=== PATIENT | female | born 1950 | race Caucasian/White ===

== ENCOUNTER 2018-08-02 16:15 | Observation (INO) | payer SELFPAY ==
[2018-07-17 10:58] VITALS: BMI 26.9
[2018-08-01] VITALS (15 sets, daily range): BP systolic 118–153; BP diastolic 67–91; PULSE 48–94; RESP 10–20; TEMP 35.6–37.1; O2SAT 94–100; BMI 25.9
--- NOTE | 2018-08-01 06:30 | DI.RAD.S_ITS ---
PROCEDURE: XR KNEE LT 1TO2V INDICATIONS: POST OPERATIVE TOTAL LEFT KNEE TECHNIQUE: 2 view(s) of the knee acquired. COMPARISON: None. FINDINGS: Bones: Patient is status post knee joint arthroplasty. Hardware components are in expected positions. Visualized bony structures are intact. Soft tissues: Overlying postoperative changes are noted. IMPRESSION: Normal postoperative examination. Dictated by: Dillon Hyatt M.D. on 08/01/2018 at 12:07 Approved by: Dillon Hyatt M.D. on 08/01/2018 at 12:07
[2018-08-01] MEDS: CELECOXIB 200 MG CAPSULE PO (08:46)
[2018-08-01] MEDS: PREGABALIN 75 MG CAPSULE PO (08:46)
[2018-08-01] MEDS: ACETAMINOPHEN 325 MG TABLET 975 MG PO (08:46)
[2018-08-01] MEDS: LACTATED RINGERS 1,000 ML 42 ML IV (09:02)
--- NOTE | 2018-08-01 09:55 | SUR.PREOP ---
SPOKE WITH MD OATS REGARDING PT ALLERGY TO PCN IN RELATION TO CURRENT ORDER FOR ANCEF. PER MD OATS OK TO CONTINUE WITH CURRENT ORDER FOR ANCEF. COMMUNICATED THIS WITH LICENSED INVESTMENT SALES ASSISTANT.
--- NOTE | 2018-08-01 09:58 | PM.PREOP ---
Pre-operative Note Interval Note Pre-op Check: Yes History & Physical Reviewed by Physician and Yes Exam Performed Changes: No
[2018-08-01] MEDS: CEFAZOLIN 2 GM/100 ML FROZ.PIGGY IV ×2 (10:40→19:06)
--- NOTE | 2018-08-01 11:13 | SUR.OPER ---
Supine on padded OR bed. Pillow under head, arms secured on padded armboards <90 degree abduction. Safety belt across torso. Non-operative leg secured with tape over blanket over lower leg. Operative leg secured in DeMayo/Gumaro positioner. Foam padded brace at thigh of operative leg.
[2018-08-01] MEDS: BUPIVACAINE 0.25% W/ EPI VIAL 50 ML INJ (11:21)
[2018-08-01] MEDS: BUPIVACAINE LIPOSOME 266 MG/20 ML VIAL INJ (11:21)
[2018-08-01] MEDS: MORPHINE 4 MG/ML INJ IM (11:22)
[2018-08-01] MEDS: TRANEXAMIC ACID 1,000 MG VIAL 1000 MG INJ ×2 (11:23→11:48)
--- NOTE | 2018-08-01 12:32 | P.OP_ITS ---
Operative Date/Time/Diagnoses Date of procedure: 08/01/18 Time of procedure: 12:15 Pre-op diagnosis: Left knee osteoarthritis Post-op diagnosis: same Procedure & Clinicians Procedure: Left total knee replacement Same procedure as scheduled: Yes Indications: The patient has had progressively worsening left knee pain with radiographic changes consistent with arthritis. Non-operative management has failed and the patient has requested total knee replacement. The risks, benefits and alternatives to surgery were discussed with the patient prior to proceeding. Risks discussed included, but were not limited to, failure to relieve pain, stiffness, infection, nerve damage, deep venous thrombosis, pulmonary embolism, stroke, coma, heart attack, permanent paralysis and , as well as the potential need for eventual revision of the prosthetic. Surgeon: Frandy Lemus Composition Weatherboard Applier: Paige Lindo Click Yes if Unassisted: No Anesthesia Type: General, Spinal and Local Operative Notes Findings: Severe medial osteoarthritis and moderately severe patellofemoral osteoarthritis with relative preservation of the lateral compartment. Closure Type: primary Specimen(s): none sent Implants & Drains: Implants used in this procedure were manufactured by the [employer] and included the BCS II Journey total knee replacement with a size 4 left Oxinium femoral component, size 3 left non porous tibial base plate, a 9 mm cross-linked polyethylene tibial insert and a 32 mm oval Julia II patellar component. Applied: implant(s) Estimated Blood Loss (mL): 50 Blood products transfused: none Tourniquet time (min): 52 Procedure in detail: The patient was seen in the pre-operative area, where the left knee was identified as the operative site and this was marked with my initials. The patient received pre-operative antibiotics with an appropriate first generation cephalosporin, and was taken to the operating room and placed on the operative table in the supine position. After satisfactory anesthesia, a multimedia instructional designer out was performed. The left leg was encircled with a tourniquet about the proximal thigh, and the leg was prepared from the toes to the tourniquet with ChloroPrep in the usual fashion and draped through sterile drapes. The leg was elevated and exsanguinated with Eschmark bandage and the tourniquet inflated to 250 mmHg pressure. The knee was approached through an approximately 18 cm incision centered over the patella and carried into the knee through a medial parapatellar arthrotomy. The anterior osteophytes and soft tissues were removed. The rotational landmarks of Isabela's line and the transepicondylar axis were marked on the femur with electrocautery, and intramedullary guide holes for the femur and tibia were created. The distal femoral cut was made in 6 degrees of valgus using the intramedullary guide at the +2 cut setting due to a preoperative flexion contracture. The proximal tibial cut was then made using the intramedullary guide, taking 9 mm of bone off the less involved side. The extension gap was checked and the rotation of the femoral component confirmed with the gap balancing blocks. The anterior, posterior and chamfer cuts were then made. The posterior osteophytes and soft tissues were then removed. The posterior capsule was injected with part of a mixture of 50 ml 0.25% Marcaine mixed with 20 ml Exparel and 4 mg of morphine for post-operative pain control. The remainder of this mixture was injected into the capsule and subcutaneous tissues during cement curing. The tibia was prepared with the rotation set by an extra medullary guide. Trial tibial and femoral components were then placed and the intercondylar notch cut through the femoral trial. Range of motion was 0-135 degrees, with good stability throughout the range. The patella was then cut to accommodate the patellar prosthetic. There was no need for a lateral release. The trials were then removed, and the femoral hole plugged with a bone plug. The bone was prepared with pulsatile lavage, and dried with a sponge. Cement was applied and the final prosthetics placed. Excess cement was removed during and after cement curing. After confirming there was no extruded cement posteriorly, the final tibial insert was placed. The knee was copiously irrigated and the tourniquet deflated. Hemostasis was obtained. The capsule was closed with interrupted # 2 polyester sutures. The subcutaneous layer was closed with 3-0 Vicryl, and the skin with a running 3-0 V-Lock suture and SteriStrips. An Aquacel Ag dressing was applied and the patient was taken to recovery having tolerated the procedure well. Complications: none Condition: stable Disposition: PACU Plan for aftercare: The patient will be maintained on a standard total knee replacement protocol with weight bearing as tolerated. The patient will receive aspirin and sequential compression devices for DVT prophylaxis. The patient will be discharged home when safe for the home environment.
[2018-08-01] MEDS: LACTATED RINGERS 1,000 ML 125 ML IV ×2 (14:00→21:39)
--- NOTE | 2018-08-01 14:49 | PC.NURSE ---
Postop Note Patient arrived to room 102 from PACU via bed at `1325. Alert and oriented x3. Oxygen sats 97% RA, encouraged to cough and deep breathe, instructed on IS use. Denies pain, received duramorph spinal. Numbness to BLEs but able to move toes/feet, strong palpable pulses present. ALIDA wrap dressing to left knee C/D/I. Oriented to room and to bed/tv/call light controls. Pt's own cold therapy device in place to left knee. Call light within reach.
--- NOTE | 2018-08-01 15:35 | PT.IIE ---
Current Diagnoses Bilateral primary osteoarthritis of knee (08/01/18) Surgery Performed Operation Date: 08/01/18 10:15 Actual Procedures p Total Knee Arthroplasty(Left) - Frandy Lemus MD Surgical History (Last Updated 07/17/18 @ 11:19 by Moira Champion RN) Hx of arthroscopy of left knee (Acute ~10/2009) Hx of colonoscopy (Acute) Hx of dilation and curettage (Acute) Medical History (Last Updated 07/17/18 @ 11:19 by Moira Champion RN) Eczema (Acute) GERD (gastroesophageal reflux disease) (Acute) HTN (hypertension) (Acute) Hyperlipidemia (Acute) Hypothyroidism (Acute) Low back pain (Acute) Osteoarthritis (Acute) Physical Therapy Inpatient Evaluation/Re-Eval M1 PT/OT-IP Prior Functional Status Start: 08/01/18 16:54 Freq: NEEDED Status: Active Protocol: Document 08/01/18 15:35 AB (Rec: 08/01/18 17:08 AB [id number]) Medical Review Prior Functional Status Medical History Reviewed Yes Communication able to make needs known Mobility and Gait stated that she is indpeendent with all mobilities and ambulation without AD but occasionally uses a SPC for long distance ambulation Social History Household Members spouse Living Arrangements House Number of Floors (Floors) Two Floors Number of Stairs To Enter/Railing? pt lives in [facility]. stated that she will stay at the [facility] until tuesday and will fly back to [place]. Has 2 steps without rails to enter; 12 steps with R rail ascending to get to 2nd floor Home Environment High Toilet Walk in Shower Home Equipment Front Wheel Walker Straight Cane Crutches Raised Toilet Seat w/Armrests Shower Seat without Backrest Hand Held Shower Additional Social History Comment stated that she will have a visiting nurse to assist her for ~ 4 hours everyday for 2 weeks M2 PT-IP Current Condition Start: 08/01/18 16:54 Freq: NEEDED Status: Active Protocol: Document 08/01/18 15:35 AB (Rec: 08/01/18 17:08 AB [id number]) Physical Therapy Current Condition Current Condition Evaluation Date 08/01/18 Treatment Diagnosis s/p L TKA; difficulty in walking Onset Date 08/01/18 Weight Bearing Status Weight Bearing Status Weight Bear as Tolerated M3 PT-IP Subjective Start: 08/01/18 16:54 Freq: NEEDED Status: Active Protocol: Document 08/01/18 15:35 AB (Rec: 08/01/18 17:08 AB [id number]) Subjective Physical Therapy Visit Type Type Initial Evaluation Visit Start Time 15:35 Visit Stop Time 16:30 Total Visit Minutes 55 Number of HEALTH INFORMATION TECHNOLOGIST Visits 0 Physical Therapy Visit Comments Patient Comments pt agreeable to do PT; still c /o numbness on RLE and buttocks area Therapy Pain Assessment Pain When Pain Assessed During Mobility Pain Present Pain Present Pain Reported Location Left Knee Intensity 6 Scale Used Numeric (1 - 10) Pain Management Techniques Apply Cold Re-positioning Timing of Activity with Medications M4 PT-IP Mobility and Gait Start: 08/01/18 16:54 Freq: NEEDED Status: Active Protocol: Document 08/01/18 15:35 AB (Rec: 08/01/18 17:08 AB [id number]) PT-Bed Mobility Assessment Supine to Sit Supine to Sit Standby Assistance Sit to Supine Sit to Supine Standby Assistance Scooting Scooting to Edge of Bed Standby Assistance PT-Transfer Assessment Sit to and From Stand Sit to and from Stand Maximum Assistance 1 Person Assistance Use of Upper Extremities Equipment Transfer Assistive Device Gait Belt Front Wheeled Walker Orthotic/Prosthetic Devices or Brace: No Transfers Transfer Destination Bedside Commode Transfer Technique Stand Step Pivot Transfer Ability Level of Assist Maximum Assistance 1 Person Assistance Use of Upper Extremities Comments Mobility Comments pt required max A and max cues with sit to stand. presents with decrease standing balance requiring max A for steadiness and safety. pt sat back down. pt requested to use bedside commode. pt completed sit to stand again max A and max cues for quad activation on BLE. pt complete stand step pivot transfer to bedside commode max a and max cues with assist with maneuvering FWW. Nurse present. pt completed sit to stand from bedside comoode max A and cues and transferred to the bed using FWW. pt does not have full control of RLE affecting mobility and stability and reuqired max A and max cues during transfer. Pt. c/o nausea during mobility : BP in supine: 121/79 BP sitting on EOB: 141/69. Nurse aware and present during tx session. pt wiht (+) emesis. Gait Assessment Comments Gait Comments unable at this time; still c/o RLE numbness and unable to control LE and trunk during transfers requiring max A and max cues. PT-Balance Assessment Sitting Balance and Reactions Static Sitting Balance Ability Good Dynamic Sitting Balance Ability Fair Standing Balance and Reactions Static Standing Balance Ability Poor Dynamic Standing Balance Ability Poor Device Used FWW M5 PT-IP Objective Assessments Start: 08/01/18 16:54 Freq: NEEDED Status: Active Protocol: Document 08/01/18 15:35 AB (Rec: 08/01/18 17:08 AB [id number]) Orientation Orientation/Cognition Level of Alertness Alert Orientation Name Age Birthday Month Date Year Day of Week Place Situation Gross Range of Motion Lower Extremity ROM Assessment Left Impaired Impairments PROM LLE: ~ 80 deg Strength Lower Extremity Strength Assessment Left Impaired Knee 3+/5 Sensation Assessment Sensation Gross Sensation Right LE Impaired Light Touch Impaired Sensation Description Numbness M6 PT-IP Treatment Start: 08/01/18 16:54 Freq: NEEDED Status: Active Protocol: Document 08/01/18 15:35 AB (Rec: 08/01/18 17:08 AB [id number]) Physical Therapy Treatment Exercises Exercises Ankle Pumps Quad Sets Heel Slides Straight Leg Raises Education Education Provided Precautions Weight Bearing Status Post-Op Packet Safety M7 PT-IP Assessment and Plan Start: 08/01/18 16:54 Freq: NEEDED Status: Active Protocol: Document 08/01/18 15:35 AB (Rec: 08/01/18 17:08 AB [id number]) PT Summary Assessment and Plan Potential Rehabilitation Potential Fair Status of Condition at Evaluation Evolving Summary Impairments Pain ROM Strength Balance Coordination Sensation Tone Bed Mobility Transfers Gait Activity Tolerance Assessment Summary pt requiring max A with mobility at this time and still c/o RLE numbness affecting moblity. will continue to assess. pt plans to go home with spouse to assist her. Goals Bed Mobility Goal Standby Assistance Transfer Goal Standby Assistance Front Wheeled Walker Gait Goal Standby Assistance Front Wheel Walker Gait Distance 200 Other Goals up/down 2 steps without rails SBA; up/down 12 steps with R rail ascending SBA Days to Meet Goals 3 Frequency of Treatment Frequency Of Treatment Twice a Day Treatment Plan Physical Therapy Treatment Plan Bed Mobility Training Transfer Training Gait Training Therapeutic Exercise Balance Retraining Post Op Education Discharge Planning Hot or Cold Pack Neuromuscular Re-ed Coordination Retraining Manual Therapy Recommendations To Nursing Amount of Assist Needed 2 Person Assist Discharge Recommendations PT Discharge Recommendations Home with 04/04 Assist Home Health
--- NOTE | 2018-08-01 15:35 | PT.IIE ---
Current Diagnoses Bilateral primary osteoarthritis of knee (08/01/18) Surgery Performed Operation Date: 08/01/18 10:15 Actual Procedures p Total Knee Arthroplasty(Left) - Frandy Lemus MD Surgical History (Last Updated 07/17/18 @ 11:19 by Moira Champion RN) Hx of arthroscopy of left knee (Acute ~10/2009) Hx of colonoscopy (Acute) Hx of dilation and curettage (Acute) Medical History (Last Updated 07/17/18 @ 11:19 by Moira Champion RN) Eczema (Acute) GERD (gastroesophageal reflux disease) (Acute) HTN (hypertension) (Acute) Hyperlipidemia (Acute) Hypothyroidism (Acute) Low back pain (Acute) Osteoarthritis (Acute) Physical Therapy Inpatient Evaluation/Re-Eval M1 PT/OT-IP Prior Functional Status Start: 08/01/18 16:54 Freq: NEEDED Status: Active Protocol: Document 08/01/18 15:35 AB (Rec: 08/01/18 17:08 AB [id number]) Medical Review Prior Functional Status Medical History Reviewed Yes Communication able to make needs known Mobility and Gait stated that she is indpeendent with all mobilities and ambulation without AD but occasionally uses a SPC for long distance ambulation Social History Household Members spouse Living Arrangements House Number of Floors (Floors) Two Floors Number of Stairs To Enter/Railing? pt lives in [facility]. stated that she will stay at the [facility] until tuesday and will fly back to [place]. Has 2 steps without rails to enter; 12 steps with R rail ascending to get to 2nd floor Home Environment High Toilet Walk in Shower Home Equipment Front Wheel Walker Straight Cane Crutches Raised Toilet Seat w/Armrests Shower Seat without Backrest Hand Held Shower Additional Social History Comment stated that she will have a visiting nurse to assist her for ~ 4 hours everyday for 2 weeks M2 PT-IP Current Condition Start: 08/01/18 16:54 Freq: NEEDED Status: Active Protocol: Document 08/01/18 15:35 AB (Rec: 08/01/18 17:08 AB [id number]) Physical Therapy Current Condition Current Condition Evaluation Date 08/01/18 Treatment Diagnosis s/p L TKA; difficulty in walking Onset Date 08/01/18 Weight Bearing Status Weight Bearing Status Weight Bear as Tolerated M3 PT-IP Subjective Start: 08/01/18 16:54 Freq: NEEDED Status: Active Protocol: Document 08/01/18 15:35 AB (Rec: 08/01/18 17:08 AB [id number]) Subjective Physical Therapy Visit Type Type Initial Evaluation Visit Start Time 15:35 Visit Stop Time 16:30 Total Visit Minutes 55 Number of AIR CREW SUPERVISOR Visits 0 Physical Therapy Visit Comments Patient Comments pt agreeable to do PT; still c /o numbness on RLE and buttocks area Therapy Pain Assessment Pain When Pain Assessed During Mobility Pain Present Pain Present Pain Reported Location Left Knee Intensity 6 Scale Used Numeric (1 - 10) Pain Management Techniques Apply Cold Re-positioning Timing of Activity with Medications M4 PT-IP Mobility and Gait Start: 08/01/18 16:54 Freq: NEEDED Status: Active Protocol: Document 08/01/18 15:35 AB (Rec: 08/01/18 17:08 AB [id number]) PT-Bed Mobility Assessment Supine to Sit Supine to Sit Standby Assistance Sit to Supine Sit to Supine Standby Assistance Scooting Scooting to Edge of Bed Standby Assistance PT-Transfer Assessment Sit to and From Stand Sit to and from Stand Maximum Assistance 1 Person Assistance Use of Upper Extremities Equipment Transfer Assistive Device Gait Belt Front Wheeled Walker Orthotic/Prosthetic Devices or Brace: No Transfers Transfer Destination Bedside Commode Transfer Technique Stand Step Pivot Transfer Ability Level of Assist Maximum Assistance 1 Person Assistance Use of Upper Extremities Comments Mobility Comments pt required max A and max cues with sit to stand. presents with decrease standing balance requiring max A for steadiness and safety. pt sat back down. pt requested to use bedside commode. pt completed sit to stand again max A and max cues for quad activation on BLE. pt complete stand step pivot transfer to bedside commode max a and max cues with assist with maneuvering FWW. Nurse present. pt completed sit to stand from bedside comoode max A and cues and transferred to the bed using FWW. Gait Assessment Comments Gait Comments unable at this time; still c/o RLE numbness and unable to control LE and trunk during transfers requiring max A and max cues. PT-Balance Assessment Sitting Balance and Reactions Static Sitting Balance Ability Good Dynamic Sitting Balance Ability Fair Standing Balance and Reactions Static Standing Balance Ability Poor Dynamic Standing Balance Ability Poor Device Used FWW M5 PT-IP Objective Assessments Start: 08/01/18 16:54 Freq: NEEDED Status: Active Protocol: Document 08/01/18 15:35 AB (Rec: 08/01/18 17:08 AB [id number]) Orientation Orientation/Cognition Level of Alertness Alert Orientation Name Age Birthday Month Date Year Day of Week Place Situation Gross Range of Motion Lower Extremity ROM Assessment Left Impaired Impairments PROM LLE: ~ 80 deg Strength Lower Extremity Strength Assessment Left Impaired Knee 3+/5 Sensation Assessment Sensation Gross Sensation Right LE Impaired Light Touch Impaired Sensation Description Numbness M6 PT-IP Treatment Start: 08/01/18 16:54 Freq: NEEDED Status: Active Protocol: Document 08/01/18 15:35 AB (Rec: 08/01/18 17:08 AB [id number]) Physical Therapy Treatment Exercises Exercises Ankle Pumps Quad Sets Heel Slides Straight Leg Raises Education Education Provided Precautions Weight Bearing Status Post-Op Packet Safety M7 PT-IP Assessment and Plan Start: 08/01/18 16:54 Freq: NEEDED Status: Active Protocol: Document 08/01/18 15:35 AB (Rec: 08/01/18 17:08 AB [id number]) PT Summary Assessment and Plan Potential Rehabilitation Potential Fair Status of Condition at Evaluation Evolving Summary Impairments Pain ROM Strength Balance Coordination Sensation Tone Bed Mobility Transfers Gait Activity Tolerance Assessment Summary pt requiring max A with mobility at this time and still c/o RLE numbness affecting moblity. will continue to assess. pt plans to go home with spouse to assist her. Goals Bed Mobility Goal Standby Assistance Transfer Goal Standby Assistance Front Wheeled Walker Gait Goal Standby Assistance Front Wheel Walker Gait Distance 200 Other Goals up/down 2 steps without rails SBA; up/down 12 steps with R rail ascending SBA Days to Meet Goals 3 Frequency of Treatment Frequency Of Treatment Twice a Day Treatment Plan Physical Therapy Treatment Plan Bed Mobility Training Transfer Training Gait Training Therapeutic Exercise Balance Retraining Post Op Education Discharge Planning Hot or Cold Pack Neuromuscular Re-ed Coordination Retraining Manual Therapy Recommendations To Nursing Amount of Assist Needed 2 Person Assist Discharge Recommendations PT Discharge Recommendations Home with 04/04 Assist Home Health
[2018-08-01] MEDS: ONDANSETRON 4 MG/2 ML INJ IV ×2 (16:13→20:41)
[2018-08-01] MEDS: NALOXONE 0.4 MG/ML VIAL 0.2 MG IV ×5 (18:29→23:53)
--- NOTE | 2018-08-01 18:32 | PC.NURSE ---
Addendum entered by Xin Orlando R.N. 08/01/18 22:26: 2225 - Nausea persists. Zofran does not seem to be very effective. Narcan given as ordered. Pt states I would rather have pain than have my head feel like this. Ice replenished. Bradycardic in the 50's, 100% on 2L, drsg cdi. Original Note: Addendum entered by Xin Orlando R.N. 08/01/18 20:51: 2050 - Pt continues to report nausea. Zofran given. Home cooling device on LLE. Original Note: Addendum entered by Xin Orlando R.N. 08/01/18 18:39: 1840 - Pt reports nausea as improved however now reporting pain to left knee 3/10, throbbing. continue to monitor. Original Note: Dr. Montesinos notified that pt has persistent nausea and mild lightheadedness with 2 episodes of emesis, and that her HR is bradycardic, 40's while asleep and 50's while awake. BP 136/61, also notified placed on 2L NC r/t sats decreasing into the 70's while asleep. Review RX, scolopalimine patch, zorfran and duramorph. Recommends trial of a small amount narcan to assist with nausea. Monitor.
[2018-08-02] VITALS: BP 153/70; PULSE 47; RESP 16; TEMP 36.1; O2SAT 100
[2018-08-02] MEDS: CEFAZOLIN 2 GM/100 ML FROZ.PIGGY IV (03:55)
[2018-08-02 04:00] VITALS: BP 114/66; PULSE 57; RESP 18; TEMP 36.2; O2SAT 100
[2018-08-02 05:47] LABS: Hematocrit 34.4 % (36-46); Hemoglobin 11.4 g/dL (12.0-16.0)
[2018-08-02] MEDS: LEVOTHYROXINE 75 MCG TABLET PO (06:00)
[2018-08-02] MEDS: LACTATED RINGERS 1,000 ML 125 ML IV (06:00)
--- NOTE | 2018-08-02 06:54 | PC.NURSE ---
Pt voided at start of shift via bedpan 100 mL. Attempted bedpan two more times unsuccessful. Offered to get pt up to BSC, states I'm still feeling a little woozy and declines. Bladder scan for >700 mL. Pt declines straight cath at this time, attempting to use bedpan again before anything else discussed. Nausea has subsided after one dose of narcan this shift. Pain reported 3/10 at most and tolerable. No acute changes this shift.
[2018-08-02 07:00] VITALS: BP 133/71; PULSE 63; RESP 18; TEMP 36.6; O2SAT 100
--- NOTE | 2018-08-02 07:48 | PM.PNPO.1 ---
Subjective Date Patient Seen: 08/02/18 Time Patient Seen: 07:49 Interval history: The patient reports she has had some nausea and vomiting overnight. She has received antiemetics. She also reports that she has had some mild dizziness although she has been able to get up and walk to the bathroom without difficulty. Exam Vital Signs (past 8 hours): - 08/02/18 00:00 08/02/18 04:00 Temperature 97.0 F L 97.2 F L Pulse Rate 47 L 57 L Respiratory Rate 16 18 Blood Pressure 153/70 H 114/66 Pulse Oximetry 100 100 Oxygen Delivery Method Nasal Cannula Oxygen Flow Rate 2 Narrative Exam Narrative: Left knee wound is dressed with no drainage on the bandage. Calf is soft. Light touch and motion are intact in the left lower extremity. Objective Labs Result Diagrams: 08/02/18 05:16 Labs: Laboratory Results - last 24 hr 08/01/18 08/02/18 13:40 05:16 Hgb 11.4 L Hct 34.4 L Nasal Screen MRSA (PCR) Negative for mrsa Radiographs reveal a well-positioned total knee replacement in the left knee with no signs of any early complications. Assessment & Plan Post-op Postoperative Procedures Operation Date: 08/01/18 10:15 Actual Procedures Side Surgeon p Total Knee Arthroplasty Left Frandy Lemus MD Postoperative day: 1 Postoperative status: doing well, anemia and other (Postoperative nausea) Postoperative status narrative: The patient is stable postoperative day 1 but is having mild symptoms from her anesthesia including some mild lightheadedness and nausea. She has been able to walk to and from the bathroom. She has a mild post hemorrhagic anemia. This should not require additional labs. Postoperative plan: routine post-op care, ambulate and advance diet Postoperative plan narrative: She will have physical therapy today. We will continue to treat her nausea appropriately and advance her diet as tolerated. It is unlikely she will be ready for discharge today however she may make enough progress in PT to be discharged tomorrow if she stabilizes further. Time Spent With Patient less than 15 minutes
[2018-08-02] MEDS: ACETAMINOPHEN 325 MG TABLET 975 MG PO ×3 (09:07→20:31)
[2018-08-02] MEDS: DOCUSATE 100 MG CAPSULE PO ×2 (09:08→20:31)
[2018-08-02] MEDS: ASPIRIN EC 81 MG TABLET PO ×2 (09:08→20:31)
[2018-08-02] MEDS: ONDANSETRON 4 MG/2 ML INJ IV (10:39)
--- NOTE | 2018-08-02 10:40 | PT.IPTN ---
Current Diagnoses Bilateral primary osteoarthritis of knee (08/01/18) Surgery Performed Operation Date: 08/01/18 10:15 Actual Procedures p Total Knee Arthroplasty(Left) - Frandy Lemus MD Physical Therapy Treatment Note M2 PT-IP Current Condition Start: 08/01/18 16:54 Freq: NEEDED Status: Active Protocol: Document 08/01/18 15:35 AB (Rec: 08/01/18 17:08 AB [id number]) Physical Therapy Current Condition Current Condition Evaluation Date 08/01/18 Treatment Diagnosis s/p L TKA; difficulty in walking Onset Date 08/01/18 Weight Bearing Status Weight Bearing Status Weight Bear as Tolerated M3 PT-IP Subjective Start: 08/01/18 16:54 Freq: NEEDED Status: Active Protocol: Document 08/02/18 10:40 GGD (Rec: 08/02/18 11:42 GGD [id number]) Subjective Physical Therapy Visit Type Type Treatment Note Visit Start Time 10:10 Visit Stop Time 10:40 Total Visit Minutes 30 Number of ASSISTANT STORE MANAGER SALES Visits 1 Physical Therapy Visit Comments Patient Comments Pt states she still feeling nauseous when moving. Therapy Pain Assessment Pain When Pain Assessed During Mobility Pain Present Pain Present Pain Reported Location Left Knee Intensity 2 Scale Used Numeric (1 - 10) Pain Management Techniques Apply Cold Re-positioning Timing of Activity with Medications M4 PT-IP Mobility and Gait Start: 08/01/18 16:54 Freq: NEEDED Status: Active Protocol: Document 08/02/18 10:40 GGD (Rec: 08/02/18 11:42 GGD [id number]) PT-Bed Mobility Assessment Supine to Sit Supine to Sit Standby Assistance Sit to Supine Sit to Supine Standby Assistance Scooting Scooting to Edge of Bed Standby Assistance PT-Transfer Assessment Sit to and From Stand Sit to and from Stand Contact Guard Assistance Use of Upper Extremities Equipment Transfer Assistive Device Gait Belt Front Wheeled Walker Orthotic/Prosthetic Devices or Brace: No Transfers Transfer Destination Bed Transfer Ability Level of Assist Contact Guard Assistance Use of Upper Extremities Gait Assessment Gait Gait Assistance Required: Contact Guard Assist Distance (Feet) 6 Able to Maintain Weight Bearing Status Yes During Gait Assistive Devices Assistive Device Gait Belt Front Wheeled Walker Orthotic/Prosthetic Devices or Brace: No Gait Deviations General Gait Pattern Antalgic Step-to Gait Factors Limiting Gait Function Factors Limiting Gait Function Decreased Strength Limited Range of Motion Pain Comments Gait Comments Pt had increase in nausea with gait with +emesis. M5 PT-IP Objective Assessments Start: 08/01/18 16:54 Freq: NEEDED Status: Active Protocol: Document 08/01/18 15:35 AB (Rec: 08/01/18 17:08 AB [id number]) Orientation Orientation/Cognition Level of Alertness Alert Orientation Name Age Birthday Month Date Year Day of Week Place Situation Gross Range of Motion Lower Extremity ROM Assessment Left Impaired Impairments PROM LLE: ~ 80 deg Strength Lower Extremity Strength Assessment Left Impaired Knee 3+/5 Sensation Assessment Sensation Gross Sensation Right LE Impaired Light Touch Impaired Sensation Description Numbness M6 PT-IP Treatment Start: 08/01/18 16:54 Freq: NEEDED Status: Active Protocol: Document 08/02/18 10:40 GGD (Rec: 08/02/18 11:42 GGD [id number]) Physical Therapy Treatment Exercises Exercises Ankle Pumps Quad Sets Heel Slides Straight Leg Raises M7 PT-IP Assessment and Plan Start: 08/01/18 16:54 Freq: NEEDED Status: Active Protocol: Document 08/02/18 10:40 GGD (Rec: 08/02/18 11:42 GGD [id number]) PT Summary Assessment and Plan Summary Assessment Summary Pt improving with mobility. She needed less assist for sit to stand. She was able to ambulate short distance, but had increase in nausea. She should D/C home when medically stable. Frequency of Treatment Frequency Of Treatment Twice a Day Treatment Plan Physical Therapy Treatment Plan Bed Mobility Training Transfer Training Gait Training Therapeutic Exercise Balance Retraining Post Op Education Discharge Planning Hot or Cold Pack Neuromuscular Re-ed Coordination Retraining Manual Therapy Recommendations To Nursing Amount of Assist Needed 1 Person Assist Discharge Recommendations PT Discharge Recommendations Home with 04/04 Assist Home Health
[2018-08-02] MEDS: ROSUVASTATIN 10 MG TABLET 20 MG PO (11:59)
[2018-08-02 12:09] VITALS: BP 122/61; PULSE 55; RESP 20; TEMP 36.6; O2SAT 99
--- NOTE | 2018-08-02 12:57 | PC.NURSE ---
Day Shift Note Pt reported dizziness and nausea this AM on assessment - nata. with change of position. BP is stable throughout episode, CBG 117. Resolved with rest and with Zofran. Encouraged slow PO intake - able to eat majority of lunch tray. Reports pain controlled with Tylenol. Scope patch remains in place. Home cold therapy machine in place to left knee. CMS intact to BLEs. Call light within reach, using appropriately to make needs known.
--- NOTE | 2018-08-02 15:30 | PT.IPTN ---
Current Diagnoses Bilateral primary osteoarthritis of knee (08/01/18) Surgery Performed Operation Date: 08/01/18 10:15 Actual Procedures p Total Knee Arthroplasty(Left) - Frandy Lemus MD Physical Therapy Treatment Note M2 PT-IP Current Condition Start: 08/01/18 16:54 Freq: NEEDED Status: Active Protocol: Document 08/01/18 15:35 AB (Rec: 08/01/18 17:08 AB [id number]) Physical Therapy Current Condition Current Condition Evaluation Date 08/01/18 Treatment Diagnosis s/p L TKA; difficulty in walking Onset Date 08/01/18 Weight Bearing Status Weight Bearing Status Weight Bear as Tolerated M3 PT-IP Subjective Start: 08/01/18 16:54 Freq: NEEDED Status: Active Protocol: Document 08/02/18 15:26 GGD (Rec: 08/02/18 15:30 GGD [id number]) Subjective Physical Therapy Visit Type Type Treatment Note Visit Start Time 15:00 Visit Stop Time 15:25 Total Visit Minutes 25 Number of COAL EQUIPMENT OPERATOR Visits 2 Physical Therapy Visit Comments Patient Comments Pt states that she is feeling better. Therapy Pain Assessment Pain When Pain Assessed During Mobility Pain Present Pain Present Pain Reported Location Left Knee Intensity 3 Scale Used Numeric (1 - 10) Pain Management Techniques Apply Cold Re-positioning M4 PT-IP Mobility and Gait Start: 08/01/18 16:54 Freq: NEEDED Status: Active Protocol: Document 08/02/18 15:26 GGD (Rec: 08/02/18 15:30 GGD [id number]) PT-Bed Mobility Assessment Supine to Sit Supine to Sit Standby Assistance Sit to Supine Sit to Supine Standby Assistance Scooting Scooting to Edge of Bed Standby Assistance PT-Transfer Assessment Sit to and From Stand Sit to and from Stand Standby Assistance Use of Upper Extremities Equipment Transfer Assistive Device Gait Belt Front Wheeled Walker Orthotic/Prosthetic Devices or Brace: No Transfers Transfer Destination Bed Transfer Ability Level of Assist Contact Guard Assistance Use of Upper Extremities Gait Assessment Gait Gait Assistance Required: Contact Guard Assist Distance (Feet) 25 Able to Maintain Weight Bearing Status Yes During Gait Assistive Devices Assistive Device Gait Belt Front Wheeled Walker Orthotic/Prosthetic Devices or Brace: No Gait Deviations General Gait Pattern Antalgic Step-to Gait Factors Limiting Gait Function Factors Limiting Gait Function Decreased Strength Limited Range of Motion Pain M5 PT-IP Objective Assessments Start: 08/01/18 16:54 Freq: NEEDED Status: Active Protocol: Document 08/01/18 15:35 AB (Rec: 08/01/18 17:08 AB [id number]) Orientation Orientation/Cognition Level of Alertness Alert Orientation Name Age Birthday Month Date Year Day of Week Place Situation Gross Range of Motion Lower Extremity ROM Assessment Left Impaired Impairments PROM LLE: ~ 80 deg Strength Lower Extremity Strength Assessment Left Impaired Knee 3+/5 Sensation Assessment Sensation Gross Sensation Right LE Impaired Light Touch Impaired Sensation Description Numbness M6 PT-IP Treatment Start: 08/01/18 16:54 Freq: NEEDED Status: Active Protocol: Document 08/02/18 15:26 GGD (Rec: 08/02/18 15:30 GGD [id number]) Physical Therapy Treatment Exercises Exercises Ankle Pumps Quad Sets Heel Slides Straight Leg Raises Seated Knee Flexion/Extension M7 PT-IP Assessment and Plan Start: 08/01/18 16:54 Freq: NEEDED Status: Active Protocol: Document 08/02/18 15:26 GGD (Rec: 08/02/18 15:30 GGD [id number]) PT Summary Assessment and Plan Summary Assessment Summary Pt improving with mobility. She was able to progress her gait distance. She had no c/o dizziness or nausea. She should D/C home when medically stable. Frequency of Treatment Frequency Of Treatment Twice a Day Treatment Plan Physical Therapy Treatment Plan Bed Mobility Training Transfer Training Gait Training Therapeutic Exercise Balance Retraining Post Op Education Discharge Planning Hot or Cold Pack Neuromuscular Re-ed Coordination Retraining Manual Therapy Recommendations To Nursing Amount of Assist Needed 1 Person Assist Discharge Recommendations PT Discharge Recommendations Home with Assistance Home Health
[2018-08-02 15:44] VITALS: BP 110/47; PULSE 65; RESP 18; TEMP 37.1; O2SAT 100
[2018-08-02 20:19] VITALS: BP 107/61; PULSE 86; RESP 19; TEMP 36.3
[2018-08-02] MEDS: SODIUM CHLORIDE 0.9% FLUSH 10 ML IV (20:32)
[2018-08-03 00:40] VITALS: BP 111/88; PULSE 67; RESP 16; TEMP 36.3; O2SAT 97
[2018-08-03] MEDS: IBUPROFEN 200 MG TABLET 400 MG PO (03:56)
[2018-08-03 04:05] VITALS: BP 111/78; PULSE 68; RESP 16; TEMP 36.9; O2SAT 98
[2018-08-03] MEDS: OXYCODONE IR 5 MG TABLET PO ×2 (06:40→09:56)
[2018-08-03] MEDS: LEVOTHYROXINE 75 MCG TABLET PO (06:40)
[2018-08-03] MEDS: SODIUM CHLORIDE 0.9% FLUSH 10 ML IV (07:27)
[2018-08-03 07:53] VITALS: BP 112/73; PULSE 63; RESP 18; TEMP 36.6; O2SAT 98
--- NOTE | 2018-08-03 09:22 | PM.DS.1 ---
History of Present Illness Date Patient Seen: 08/03/18 Time Patient Seen: 09:23 Chief complaint: total knee arthroplasty 41111 Narrative: The history and physical for this patient has been entered into the chart in a previously completed note. Please refer to that note for this information. Discharge Providers Date of admission: 08/01/18 08:24 Consults: 08/01/18 13:20 Consult to Discharge Planning Routine Comment: Consult to Physical Therapy Evaluate & Treat Comment: Physician Instructions: postop TKA protocol Discharge provider: Frandy Lemus MD Discharge Date: 08/03/18 Summary Discharge Diagnosis: 1. Left knee osteoarthritis 2. Mild, anticipated acute post hemorrhagic anemia 3. Postoperative nausea and vomiting Hospital Course: The patient was admitted to the hospital and taken directly to the operating room on August 01, 2018. She underwent a left total knee replacement without complications. Postoperatively she was stable but did have significant nausea and vomiting. This limited her ability to participate in physical therapy initially. She was maintained in the hospital for 2 days postoperatively and made excellent progress with therapy once the nausea resolved. Status at Discharge Cognitive/behavioral status at discharge: Baseline Functional status at discharge: uses cane/walker Overall status at discharge: patient is progressing back to baseline Time Spent with Patient Less than 30 minutes Exam Vital Signs (past 8 hours): - 08/03/18 04:05 08/03/18 07:53 Temperature 98.5 F 98 F Pulse Rate 68 63 Respiratory Rate 16 18 Blood Pressure 111/78 112/73 Pulse Oximetry 98 98 Oxygen Delivery Method Room Air Oxygen Flow Rate 2 Narrative Exam Narrative: Left lower extremity wound is dressed with no drainage on the bandage. Calf is soft. Light touch and motion are intact in the left lower extremity. Objective Labs Result Diagrams: 08/02/18 05:16 Labs: Radiographs postoperatively reveal an appropriately positioned [employer] BCS II total knee replacement. There is a slight radiolucent line under the lateral aspect of the tibia but no evidence for significant complications. Discharge Plan Discharge Plan Patient Disposition: Home Discharge Med Rec/Prescriptions Prescriptions: New acetaminophen 325 mg Tablet 975 mg PO TID 30 Days Qty: 270 RF: 0 aspirin 81 mg Tablet,Delayed Release (Dr/Ec) 81 mg PO BID 42 Days Qty: 84 RF: 0 oxycodone 5 mg Tablet 5 mg PO Q3HR PRN (Reason: Pain, Moderate (4-6)) Qty: 60 RF: 0 hydroxyzine pamoate 25 mg Capsule 25 mg PO Q6HR PRN (Reason: Nausea) Qty: 40 RF: 0 Continue levothyroxine [Synthroid] 75 mcg Tablet 75 mcg PO DAILY RF: 0 pantoprazole 40 mg Tablet,Delayed Release (Dr/Ec) 40 mg PO PRN PRN (Reason: GI Upset) RF: 0 ibuprofen [Advil] 200 mg Tablet 400 mg PO DAILY PRN (Reason: pain) RF: 0 valsartan-hydrochlorothiazide 160-25 mg Tablet 1 tab PO QNOON RF: 0 rosuvastatin 20 mg Tablet 20 mg PO QNOON RF: 0 Follow up/Referrals: Frandy Lemus MD [Physician] - 2 Weeks Provider Discharge Instructions Diet: Diet as Tolerated and Regular Activity: Ambulate for 5-10 minutes every hour while awake. Keep your leg elevated with a pillow under the calf and heel but not the knee. Cold/Heat Therapy: Apply ice to the left knee for 15 min of every hour as needed Skin/Wound/Dressing Care Report to your healthcare provider any signs of infection, such as:: chills, fever, night sweats, increased pain and unusual drainage Dressing: You may remove the Naveed wrap 3 days after surgery and shower with the deeper dressing in place. The deeper dressing should be removed 2 weeks after surgery. If the central strip of the deeper dressing gets saturated with either water or blood it will need to be removed earlier. Discharge Data Attending Provider: Frandy Lemus Admit Date/Time: 08/01/18 08:24
--- NOTE | 2018-08-03 09:25 | PT.IPTN ---
Current Diagnoses Bilateral primary osteoarthritis of knee (08/01/18) Surgery Performed Operation Date: 08/01/18 10:15 Actual Procedures p Total Knee Arthroplasty(Left) - Frandy Lemus MD Physical Therapy Treatment Note M2 PT-IP Current Condition Start: 08/01/18 16:54 Freq: NEEDED Status: Active Protocol: Document 08/01/18 15:35 AB (Rec: 08/01/18 17:08 AB [id number]) Physical Therapy Current Condition Current Condition Evaluation Date 08/01/18 Treatment Diagnosis s/p L TKA; difficulty in walking Onset Date 08/01/18 Weight Bearing Status Weight Bearing Status Weight Bear as Tolerated M3 PT-IP Subjective Start: 08/01/18 16:54 Freq: NEEDED Status: Active Protocol: Document 08/03/18 09:25 GGD (Rec: 08/03/18 11:28 GGD [email or web address]) Subjective Physical Therapy Visit Type Type Treatment Note Visit Start Time 08:55 Visit Stop Time 09:25 Total Visit Minutes 30 Number of TEST PULLER Visits 3 Physical Therapy Visit Comments Patient Comments Pt states she feeling better. Therapy Pain Assessment Pain When Pain Assessed At Rest Pain Present Pain Present Pain Reported Location Left Knee Intensity 5 Scale Used Numeric (1 - 10) Pain Management Techniques Apply Cold Re-positioning M4 PT-IP Mobility and Gait Start: 08/01/18 16:54 Freq: NEEDED Status: Active Protocol: Document 08/03/18 09:25 GGD (Rec: 08/03/18 11:28 GGD [id number]) PT-Bed Mobility Assessment Supine to Sit Supine to Sit Standby Assistance Sit to Supine Sit to Supine Standby Assistance Scooting Scooting to Edge of Bed Standby Assistance PT-Transfer Assessment Sit to and From Stand Sit to and from Stand Standby Assistance Use of Upper Extremities Equipment Transfer Assistive Device Gait Belt Front Wheeled Walker Orthotic/Prosthetic Devices or Brace: No Transfers Transfer Destination Bed Transfer Ability Level of Assist Contact Guard Assistance Use of Upper Extremities Gait Assessment Gait Gait Assistance Required: Contact Guard Assist Distance (Feet) 70 Able to Maintain Weight Bearing Status Yes During Gait Assistive Devices Assistive Device Gait Belt Front Wheeled Walker Orthotic/Prosthetic Devices or Brace: No Gait Deviations General Gait Pattern Antalgic Step-to Gait Factors Limiting Gait Function Factors Limiting Gait Function Decreased Strength Limited Range of Motion Pain Stair Climbing Assessment Evaluation Level of Assist On Stairs Contact Guard Assistance Devices Stair Climbing Assistive Devices Axillary Crutches Right Railing Technique/Endurance Stair Climbing Direction Ascend and Descend Stair Climbing Technique Step to Step Number of Steps Climbed 3 Query Text: Stair Climbing Set # Repetitions (reps) 3 Comments Stair Climbing Comments one set with crutches and two sets with right railing, needing min cues. M5 PT-IP Objective Assessments Start: 08/01/18 16:54 Freq: NEEDED Status: Active Protocol: Document 08/01/18 15:35 AB (Rec: 08/01/18 17:08 AB [id number]) Orientation Orientation/Cognition Level of Alertness Alert Orientation Name Age Birthday Month Date Year Day of Week Place Situation Gross Range of Motion Lower Extremity ROM Assessment Left Impaired Impairments PROM LLE: ~ 80 deg Strength Lower Extremity Strength Assessment Left Impaired Knee 3+/5 Sensation Assessment Sensation Gross Sensation Right LE Impaired Light Touch Impaired Sensation Description Numbness M6 PT-IP Treatment Start: 08/01/18 16:54 Freq: NEEDED Status: Active Protocol: Document 08/03/18 09:25 GGD (Rec: 08/03/18 11:28 GGD [email or web address]) Physical Therapy Treatment Exercises Exercises Ankle Pumps Quad Sets Heel Slides Straight Leg Raises Seated Knee Flexion/Extension Education Education Provided Post-Op Packet Safety M7 PT-IP Assessment and Plan Start: 08/01/18 16:54 Freq: NEEDED Status: Active Protocol: Document 08/03/18 09:25 GGD (Rec: 08/03/18 11:28 GGD [email or web address]) PT Summary Assessment and Plan Summary Assessment Summary Pt improving with mobility. She was able to progress gait distance. She need cues for stair mobility. She was safe and stable with gait and stair mobility. Frequency of Treatment Frequency Of Treatment Twice a Day Treatment Plan Physical Therapy Treatment Plan Bed Mobility Training Transfer Training Gait Training Therapeutic Exercise Balance Retraining Post Op Education Discharge Planning Hot or Cold Pack Neuromuscular Re-ed Coordination Retraining Manual Therapy Recommendations To Nursing Amount of Assist Needed 1 Person Assist Discharge Recommendations PT Discharge Recommendations Home with Assistance Home Health
--- NOTE | 2018-08-03 10:50 | PC.NURSE ---
Addendum entered by Maddi Hoff R.N. 08/03/18 11:31: Add-Dr Lemus called in Vistaril Rx to [facility] recorded line, will be available for [facility] 08/04. Pt aware. Original Note: Addendum entered by Maddi Hoff R.N. 08/03/18 11:28: Wheeled to private vehicle with spouse. All questions answered. Pt staying at [facility] x2 days before flight home. Original Note: Am shift Pt up with PT and ready to d/c Dr Lemus wrote orders, and followed up with a call in Rx for Vistaril. Clarified Mobic is either or Ibuprofen for antiinflamatory.
== END 2018-08-03 11:32 | disposition home or self-care (01) ==
LOC: OR 08-04 00:10 → AC 08-04 00:17
PROVIDERS: Admitting Provider Orthopaedic Surgery; Visit Provider Orthopaedic Surgery
PROC: 0SRD0JZ Replacement of Left Knee Joint with Synthetic Substitute, Open Approach (ICD-10-PCS; CPT 27447; principal; 2018-08-01 10:15)
DX: M17.12 Unilateral primary osteoarthritis, left knee (principal); I10 Essential (primary) hypertension; E03.9 Hypothyroidism, unspecified; E78.5 Hyperlipidemia, unspecified; D62 Acute posthemorrhagic anemia; R11.2 Nausea with vomiting, unspecified
CPT/HCPCS: 27447; 36415; 73560; 85014; 85018; 87797; 94760; 94762; 97110; 97116; 97162; 97530; C1776; G0378; C9290; J0690; J1100; J2250; J2270; J2274; J2310; J2405; J2704; J3010